=== PATIENT | female | born 1960 | race Caucasian/White ===

== ENCOUNTER → 2021-07-31 13:30 | Outpatient (CLI) | payer OTHER, SELFPAY ==
--- NOTE | ~2021-07-31 | DEXA_ITS ---
Bone Density Report Name: JIMMY CULP Age: 60 Sex: Female Ethnicity: White Date of : 1960 Indication: osteopenia; parental hip fracture; height loss; postmenopausal Referring Provider: ELLA SHEARER Study: Bone densitometry was performed. Exam Date: July 31, 2021 Accession number: [id number] Bone Density: Region BMD T-score Z-score Classification AP Spine (L1-L4) 0.858 -1.7 -0.3 Osteopenia Femoral Neck (Left) 0.752 -0.9 0.4 Normal Total Hip (Left) 0.801 -1.2 -0.2 Osteopenia Femoral Neck (Right) 0.775 -0.7 0.6 Normal Total Hip (Right) 0.863 -0.6 0.3 Normal Total Hip Mean 0.832 -0.9 0.1 Normal World Health Organization criteria for BMD impression classify patients as: Normal (T-score at or above -1.0), Osteopenia (T-score between -1.0 and -2.5), or Osteoporosis (T-score at or below -2.5). 10-year Fracture Risk(1): Major Osteoporotic Fracture 14% Hip Fracture 0.4% Reported Risk Factors: [place] (), Neck BMD=0.752, BMI=24.2, parental fracture (1) FRAX(R) Version 3.08. Fracture probability calculated for an untreated patient. Fracture probability may be lower if the patient has received treatment. Previous Exams: Region Exam Age BMD T-score BMD Change BMD Change Date g/cm2 vs Baseline vs Previous AP Spine(L1-L4) 07/31/2021 60 0.858 -1.7 -0.035* -0.035* 02/18/2017 56 0.893 -1.4 Total Hip(Left) 07/31/2021 60 0.801 -1.2 -0.014 -0.014 02/18/2017 56 0.815 -1.0 Total Hip(Right) 07/31/2021 60 0.863 -0.6 -0.009 -0.009 02/18/2017 56 0.873 -0.6 *Denotes significance at 95% confidence level, LSC for AP Spine = 0.022 g/cm2, LSC for Total Hip = 0.027 g/cm2 Clinical Information Provided by Patient: Parent has had a hip fracture Has used the following medications: Vitamin D, MULTI VITAMIN Patient maximum height was 69 Menopause Age: 51 Drinks caffeinated beverages Onset of menses at age 17 Number of children 3 Impression: The patient has low bone mass, based on the Total Spine T-score. The patient has an estimated ten-year risk of hip fracture of 0.4% and an estimated ten-year risk of major fracture of 14%, based on the WHO FRAX algorithm. The patient has risk factors, including: parental hip fracture. The BMD for the AP Spine(L1-L4) decreased, changing by -0.035 since the last DXA exam. Discussion: BONE DENSITY IS LOW AT ONE OR MORE SKELETAL SITES.
== END ==
PROVIDERS: PCP Family Medicine Sports Medicine; Visit Provider Obstetrics & Gynecology Gynecology
DX: Z78.0 Asymptomatic menopausal state (principal); M85.88 Other specified disorders of bone density and structure, other site; M85.852 Other specified disorders of bone density and structure, left thigh
CPT/HCPCS: 77080

== ENCOUNTER → 2021-12-19 09:13 | Outpatient (CLI) | payer OTHER, SELFPAY ==
--- NOTE | ~2021-12-19 | CT_ITS ---
EXAMINATION: CT shoulder RT wo con DATE: 12/19/2021 09:35 INDICATION: Right shoulder pain. TECHNIQUE: Computed tomography (CT) of the right shoulder was performed without intravenous contrast. Automated exposure control and iterative reconstruction technique were employed. The dose-length pro duct was 304.70 mGy-cm. Volume rendered 3-D reconstructions were created by the technologist on a [employer] workstation under radiologist supervision. COMPARISON: None FINDINGS: There is mild scarring at right lung apex. A calcified right lung nodule is consistent with old granulomatous disease. Bone alignment is normal. There are fractures of greater and lesser tuber osities of proximal humerus. At the greater tuberosity, there is up to 3 mm bone displacement. At the lesser tuberosity, there is up to 6 mm bone displacement. There is mild osteoarthritis of glenohumer al joint characterized by tiny osteophytes. Acromioclavicular joint is normal. IMPRESSION: 1. Comminuted fracture of proximal right humerus involving the greater and lesser tuberosities. 2. Mild osteoarthritis of glenohumeral joint. Reviewed, dictated and finalized at location A. IMPRESSION: 1. Comminuted fracture of proximal right humerus involving the greater and less er tuberosities. 2. Mild osteoarthritis of glenohumeral joint.
== END ==
PROVIDERS: PCP Family Medicine Sports Medicine; Visit Provider Orthopaedic Surgery
DX: S42.264A Nondisplaced fracture of lesser tuberosity of right humerus, initial encounter for closed fracture (principal); X58.XXXA Exposure to other specified factors, initial encounter; M19.011 Primary osteoarthritis, right shoulder
CPT/HCPCS: 73200

== ENCOUNTER 2022-02-13 13:55 | Outpatient (RCR) | payer OTHER, SELFPAY ==
[2022-02-13 14:00] VITALS: BP_SYST 45
--- NOTE | 2022-02-13 15:13 | PTOPEVAL ---
Thank you for referring Andree Moise to [facility].? She is scheduled to be seen for therapy? 2 x/week for 6 weeks. Please review, sign, date and return this plan of care JUDITH. I agree with and certify that the following plan of care is medically necessary. Referring Physician Date Attending Provider: Manuel Ferrara MD Past Medical History Source of Past Medical History Patient Neurological History Hx Neurological Disorders No Significant History Cardiovascular History Hx Cardiac Disorders No Significant History Respiratory History Hx Respiratory Disorders No Significant History Gastrointestinal History Hx Appendectomy Yes Genitourinary History Hx Genitourinary Disorders No Significant History Musculoskeletal History Hx Other Musculoskeletal Disorders Yes: R and L frozen shoulders Hematological History Hx Hematological Disorders No Significant History Endocrine History Hx Endocrine Disorders No Significant History Evaluation Information Diagnosis R proximal humeral fracture- closed Onset 12-14-21 Subjective Information initially in sling for 4 weeks Query Text:As Reported By Patient/ ; weaned out of sling few Family weeks ago; have not done any exercises or used arm much; did pendulum exercises when sling removed; saw dr and said can start exercises now; was walking and fell on extended R arm with wrist extended Prior Level of Function Activity Level (Last 3 Months) 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[employer], editor department Hand Dominance Right Additional Prior Level of Function at home, have not been using R Comments arm- lifting nothing except comb, spoon; problems with lifting arm up, cooking, stirring food; writing, typing, anything using R arm is limited; Pain Assessment Pain Scale Pain Scale Used Numeric (1 - 10) Self Report Pain Assessment Right Shoulder(s) Reported Pain Level 1 Pain Description Aching,Soreness,Tightness Pain Frequency Chronic,Continuous Other Pain Description lateral upper humerus Lowest Pain Intensity 1 Greatest Pain Intensity 7 Pain Aggravating Factors Exercise/Activity Other Pain Aggravating Factors typing on computer 10 min,lift arm,use arm in any way, cannot lie on R sh Additional Anton
--- NOTE | 2022-02-17 08:28 | PCPTNOTE ---
Patient called & cancelled scheduled appointment this date due to being unable to make it. Will continue per POC.
--- NOTE | 2022-02-18 12:23 | PCPTNOTE ---
PHYSICAL THERAPY DISCHARGE 02-18-22 Attending Provider: Manuel Ferrara MD Patient:Andree Moise Date of :1960 Ms. Moise had the PT evaluation on 02/13/2022. She called today and canceled all of the PT appointments, therefore she will be discharged at this time. Thank you for referring Andree to [facility]. Please review, sign, date and return this discharge summary JUDITH. I have been updated about the patient's current status and I agree with discharge from the above service at this time. Referring Physician Date
== END 2022-02-19 08:46 | disposition home or self-care (01) ==
LOC: ANHPT 13:55
PROVIDERS: PCP Family Medicine Sports Medicine; Visit Provider Orthopaedic Surgery
DX: S42.201D Unspecified fracture of upper end of right humerus, subsequent encounter for fracture with routine healing (principal)
CPT/HCPCS: 97110; 97161

== ENCOUNTER 2024-08-08 12:32 | Outpatient (CLI) | payer BC, SELFPAY ==
--- NOTE | ~2024-08-08 | DEXA_ITS ---
Bone Density Report Name: JIMMY CULP Age: 63 Sex: Female Ethnicity: White Date of : 1960 Indication: postmenopausal; screening for osteoporosis; parental hip fracture; prior fracture; Referring Provider: AYANA, LUC Bonds Study: Bone densitometry was performed. Exam Date: August 08, 2024 Accession number: [id number] Bone Density: Region BMD T-score Z-score Classification AP Spine(L1-L4) 0.852 -1.8 -0.2 Osteopenia Femoral Neck (Left) 0.727 -1.1 0.3 Osteopenia Total Hip (Left) 0.842 -0.8 0.3 Normal Femoral Neck (Right) 0.774 -0.7 0.7 Normal Total Hip (Right) 0.905 -0.3 0.8 Normal Femoral Neck Mean 0.751 -0.9 0.5 Normal Total Hip Mean 0.873 -0.6 0.5 Normal World Health Organization criteria for BMD impression classify patients as: Normal (T-score at or above -1.0), Osteopenia (T-score between -1.0 and -2.5), or Osteoporosis (T-score at or below -2.5). 10-year Fracture Risk(1): Major Osteoporotic Fracture 25% Hip Fracture 1.0% Reported Risk Factors: [place] (), Neck BMD=0.727, BMI=24.5, previous fracture, parental fracture (1) FRAX(R) Version 3.08. Fracture probability calculated for an untreated patient. Fracture probability may be lower if the patient has received treatment. Clinical Information Provided by Patient: Has had a low trauma fracture Parent has had a hip fracture Has used the following medications: Vitamin D Patient maximum height was 68.5 Menopause Age: 51 Onset of menses at age 17 Number of children 3 Impression: The patient has low bone mass, based on the Total Spine T-score. The patient has risk factors, including: parental hip fracture, previous fracture. Discussion: BONE DENSITY IS LOW AT ONE OR MORE SKELETAL SITES. This patient's lowest T-score is low at one or more skeletal sites. It meets the World Health Organization's (WHO) criteria for ?low bone mass? (T-score between -1.0 and -2.5). The patient's 10-year risk of fracture as calculated by FRAX is less than the threshold where pharmacological therapy is recommended by the National Osteoporosis Foundation (NOF). However, all treatment decisions require clinical judgment and consideration of individual patient factors, including patient preferences, comorbidities, previous drug use, risk factors not captured in the FRAX model (e.g., frailty, falls, vitamin D deficiency, increased bone turnover, interval significant decline in bone density) and possible under or overestimation of fracture risk by FRAX. The patient should follow a healthful lifestyle (good nutrition with adequate calcium and vitamin D, and appropriate weight-bearing exercise). Follow-Up: Consider repeating this study in 2 to 3 years to reassess this patient's status, or sooner if there is some new clinical indication. Reported by: APRIL on 08/08/2024 1:01:00 PM. Reviewed, dictated and finalized at location A.
== END 2024-08-08 12:33 | disposition home or self-care (01) ==
PROVIDERS: PCP Family Medicine; Visit Provider Family Medicine
DX: Z78.0 Asymptomatic menopausal state (principal); M85.88 Other specified disorders of bone density and structure, other site
CPT/HCPCS: 77080